=== PATIENT | male | born 1985 | race Two or more races ===

== ENCOUNTER 2018-04-06 22:58 | Emergency (ER) | payer BC, OTHER ==
[~2018-04-06] VITALS: Ht 175.3 cm; Wt 88.0 kg
[2018-04-06 23:30] VITALS: BP 146/111
--- NOTE | 2018-04-06 23:30 | NUR ---
ED Nurse Note: Patient presents to ED c/o alcohol intoxication. Patient is seeking help with alcohol rehab placement. Patient denies any SI/HI. pt denies pain. pt stated 2 hours ago is the last time he drank alcohol
[2018-04-07] MEDS ORDERED: chlordiazePOXIDE 25mg Cap ORAL ONE (00:30)
--- NOTE | 2018-04-07 00:40 | NUR ---
ED Nurse Note: pt was cleared for discharge by masha. discharge instruction and presction explained and pt able to verbalize understanding. pt aox4. vss. id band removed. pt able to walk with steady gait. pt left the ed with all belongings
--- NOTE | 2018-04-07 00:40 | Emergency Room Report ---
History of Present Illness General Chief Complaint: Alcohol Intoxication Source: Patient Present Illness HPI This is a 32-year-old male with history of alcohol abuse. He presents with chief complaint of alcohol abuse and wanting to go to inpatient rehabilitation. Denies suicidal thoughts or homicidal thought. He said he is tired of using alcohol on his family is tired of him using alcohol. He's been in AA meeting before. Denies any other drug use. No hallucination. Allergies: Coded Allergies: No Known Allergies (Unverified , 04/06/18) Patient History Past Medical History: see triage record, old chart reviewed Past Surgical History: none Pertinent Family History: none Social History: Denies: smoking, alcohol use Immunizations: other Reviewed Nursing Documentation: PMH: Agreed; PSxH: Agreed Nursing Documentation-PMH Past Medical History: No Stated History Review of Systems Eye: Denies: eye pain, blurred vision ENT: Denies: ear pain, nose congestion, throat swelling Respiratory: Denies: cough, shortness of breath Cardiovascular: Denies: chest pain, palpitations Gastrointestinal: Denies: abdominal pain, diarrhea, nausea, vomiting Musculoskeletal: Denies: back pain, joint pain Skin: Denies: rash Neurological: Denies: headache, numbness Endocrine: Denies: increased thirst, increased urine Hematologic/Lymphatic: Denies: easy bruising All Other Systems: negative except mentioned in HPI Physical Exam Vital Signs Date Time Temp Pulse Resp B/P (MAP) Pulse Ox O2 Delivery O2 Flow Rate FiO2 04/06/18 23:22 98.4 104 16 146/111 96 Room Air vitals unremarkable except for high blood pressure Sp02 EP Interpretation: reviewed, normal General Appearance: well appearing, no apparent distress, alert Head: normocephalic, atraumatic Eyes: bilateral eye PERRL, bilateral eye EOMI ENT: hearing grossly normal, normal pharynx Neck: full range of motion, supple, no meningismus Respiratory: chest non-tender, lungs clear, normal breath sounds Cardiovascular #1: regular rate, rhythm, no murmur Gastrointestinal: normal bowel sounds, non tender, no mass, no organomegaly, no bruit, non-distended Musculoskeletal: back normal, gait/station normal, normal range of motion Psychiatric: mood/affect normal Skin: warm/dry Medical Decision Making Diagnostic Impression: Primary Impression: Acute alcoholic intoxication Qualified Codes: F10.929 - Alcohol use, unspecified with intoxication, unspecified Additional Impression: Alcoholism ER Course Patient present with alcohol abuse and intoxication. I will order Librium but patient left before taking it. I also said I will refer him to outpatient rehabilitation. There is no indication for inpatient rehabilitation. There is no inpatient rehabilitation here. her for [id number]. He's not suicidal or homicidal. Last Vital Signs Date Time Temp Pulse Resp B/P (MAP) Pulse Ox O2 Delivery O2 Flow Rate FiO2 04/06/18 23:30 98.4 104 16 146/111 96 Room Air Status: improved Disposition: HOME, SELF-CARE Condition: Stable Scripts No Active Prescriptions or Reported Meds Jose Alfredo Garza MD Apr 07, 2018 00:40
[2018-04-07 01:15] VITALS: BP 115/75
== END 2018-04-07 00:40 | disposition home or self-care (01) ==
LOC: EMR 23:59
DX: F10.229 Alcohol dependence with intoxication, unspecified (principal)
CPT/HCPCS: 99282